=== PATIENT | female | born 1985 | race African-American/Black ===

== ENCOUNTER 2017-02-26 21:34 | Emergency (ER) | payer OTHER ==
[~2017-02-26] VITALS: Ht 154.9 cm; Wt 83.4 kg
[~2017-02-26 21:34] MED LIST: ALBUTEROL SULF8.5 GM IH; ATARAX,VISTARIL25 MG PO; BACTRIM,SEPT1 TABLET PO; BENADRYL ALLERG25 MG PO; FLONASE16 G1 BOTH NARES; KEFLEX500 MG PO; LORTAB 5-325 M1 EACH PO; METHERGINE0.2 MG PO; NAPROSYN500 MG PO; NORCO 7.5/321 TABLET PO; PERCOCET 5/31 TABLET PO; PREDNISONE10 M1 PO; PREDNISONE50 MG PO; PROVENTIL,2.5 MG/3 M IH; VALIUM5 MG PO; VENTOLIN HFA18 GM IH; WESTCORT 0.2% C15 GM TP; no home meds
[2017-02-26 22:21] LABS: ADD MIUA? YES; BILIRUBIN NEGATIVE; BLOOD NEGATIVE; COLOR YELLOW ((YELLOW)); GLUCOSE (STRIP) NEGATIVE; KETONES NEGATIVE; LEUKOCYTES MODERATE; NITRITE NEGATIVE; PROTEIN (STRIP) NEGATIVE; SPECIFIC GRAVITY 1.016 (1.000-1.030); UROBILINOGEN 0.2 MG/DL (0.2-1.0)
[2017-02-26 22:28] LABS: HEMATOCRIT 37.4 % (36.0-46.0); MCH 25.9 PG (29.0-34.0); MCHC 33.4 G/DL (30.0-36.0); MCV 77.6 FL (83-99); MEAN PLAT.VOLUME 8.9 uM^3 (9.5-12.4); PLATELET COUNT 326 K/uL (156-360); RBC DIS.WIDTH-CV 13.8 % (11.8-14.6); RBC DIS.WIDTH-SD 39.1 % (39-53); RED BLOOD COUNT 4.82 M/uL (3.80-5.20); WHITE BLOOD COUNT 9.8 K/uL (4.1-10.2)
[2017-02-26 22:37] LABS: BACTERIA NONE SEEN /HPF; EPITHELIAL CELLS RARE /HPF; MUCUS NONE SEEN /LPF; RED BLOOD CELLS 0-5 /HPF (0-5); UCUL ADDED? NO; WHITE BLOOD CELLS 0-5 /HPF (0-5)
[2017-02-26 22:42] LABS: CHLORIDE 106 mEq/L (99-109); POTASSIUM 3.8 mEq/L (3.7-5.4); SODIUM 138 mEq/L (136-147)
[2017-02-26 22:45] LABS: GLUCOSE 117 mg/dL (70-99)
[2017-02-26 22:46] LABS: ANION GAP 7 MEQ/L (2-14)
[2017-02-26 22:47] LABS: TOTAL BILIRUBIN 0.2 mg/dL (0.0-1.0)
[2017-02-26 22:48] LABS: ALKALINE PHOSPHATASE 61 IU/L (3-129); GFR ESTIMATE (CALCULATED) > 59 mL/min/
[2017-02-26 22:49] LABS: UREA NITROGEN (BUN) 11 mg/dL (9-23)
[2017-02-26 23:14] LABS: QUANTITATIVE HCG 95980.5 MIU/ML
[2017-02-26 23:59] VITALS: BP 130/79
== END 2017-02-27 00:02 | disposition home or self-care (01) ==
LOC: EME 21:34
DX: O26.899 Other specified pregnancy related conditions, unspecified trimester (principal); R10.9 Unspecified abdominal pain; Z3A.00 Weeks of gestation of pregnancy not specified; J45.909 Unspecified asthma, uncomplicated
CPT/HCPCS: 80053; 81003; 84702; 85027; 99281; 99285; J1885; J7030

== ENCOUNTER 2017-03-06 00:52 | Emergency (ER) | payer OTHER ==
[~2017-03-06] VITALS: Ht 154.9 cm; Wt 83.1 kg
[2017-03-06 01:40] LABS: HEMATOCRIT 36.5 % (36.0-46.0); MCH 25.6 PG (29.0-34.0); MCHC 33.2 G/DL (30.0-36.0); MCV 77.3 FL (83-99); MEAN PLAT.VOLUME 8.7 uM^3 (9.5-12.4); PLATELET COUNT 357 K/uL (156-360); RBC DIS.WIDTH-CV 13.8 % (11.8-14.6); RBC DIS.WIDTH-SD 38.9 % (39-53); RED BLOOD COUNT 4.72 M/uL (3.80-5.20); WHITE BLOOD COUNT 10.4 K/uL (4.1-10.2)
[2017-03-06 01:48] LABS: CHLORIDE 107 mEq/L (99-109); POTASSIUM 3.9 mEq/L (3.7-5.4); SODIUM 137 mEq/L (136-147)
[2017-03-06 01:50] LABS: GLUCOSE 107 mg/dL (70-99)
[2017-03-06 01:52] LABS: ANION GAP 5 MEQ/L (2-14); TOTAL BILIRUBIN 0.2 mg/dL (0.0-1.0)
[2017-03-06 01:54] LABS: ALKALINE PHOSPHATASE 64 IU/L (3-129); GFR ESTIMATE (CALCULATED) > 59 mL/min/
[2017-03-06 02:20] LABS: QUANTITATIVE HCG 129313.9 MIU/ML
[2017-03-06 02:39] LABS: UREA NITROGEN (BUN) 9 mg/dL (9-23)
[2017-03-06 03:07] LABS: ADD MIUA? YES; BILIRUBIN NEGATIVE; BLOOD NEGATIVE; COLOR YELLOW ((YELLOW)); GLUCOSE (STRIP) NEGATIVE; KETONES NEGATIVE; LEUKOCYTES MODERATE; NITRITE NEGATIVE; PROTEIN (STRIP) NEGATIVE; SPECIFIC GRAVITY 1.015 (1.000-1.030); UROBILINOGEN 0.2 MG/DL (0.2-1.0)
[2017-03-06 03:13] LABS: BACTERIA NONE SEEN /HPF; EPITHELIAL CELLS RARE /HPF; MUCUS TRACE /LPF; RED BLOOD CELLS 0-5 /HPF (0-5); UCUL ADDED? NO; WHITE BLOOD CELLS 0-5 /HPF (0-5)
[2017-03-06 06:00] VITALS: BP 117/77
== END 2017-03-06 06:05 | disposition home or self-care (01) ==
LOC: EDSEX 00:52 → EME 00:52
DX: O26.891 Other specified pregnancy related conditions, first trimester (principal); R10.9 Unspecified abdominal pain; Z3A.08 8 weeks gestation of pregnancy; J45.909 Unspecified asthma, uncomplicated
CPT/HCPCS: 76801; 80053; 81003; 84702; 85027; 99281; 99284

== ENCOUNTER 2017-07-17 12:48 | Outpatient (CLI) | payer OTHER ==
[2017-07-17 13:00] VITALS: BP 136/77
== END 2017-07-17 13:53 | disposition home or self-care (01) ==
LOC: LDRP-OP → 2WEST 12:49 → LDRP-OP 11-04 11:18
DX: O26.873 Cervical shortening, third trimester (principal); Z3A.28 28 weeks gestation of pregnancy
CPT/HCPCS: 59025; G0378; J0702

== ENCOUNTER 2017-07-19 15:15 | Outpatient (CLI) | payer OTHER ==
[2017-07-19 15:24] VITALS: BP 133/82
[2017-07-19 19:22] VITALS: BP 126/63
== END 2017-07-19 20:45 | disposition home or self-care (01) ==
LOC: LDRP-OP 15:15 → 2WEST 15:16 → LDRP-OP 11-04 13:55
DX: O26.873 Cervical shortening, third trimester (principal); O99.513 Diseases of the respiratory system complicating pregnancy, third trimester; Z3A.29 29 weeks gestation of pregnancy; J45.909 Unspecified asthma, uncomplicated; O99.013 Anemia complicating pregnancy, third trimester; D57.3 Sickle-cell trait; Z59.0 Homelessness
CPT/HCPCS: 59025; G0378; J7120

== ENCOUNTER 2017-07-26 16:49 | Outpatient (CLI) | payer OTHER ==
[~2017-07-26] VITALS: Ht 154.9 cm; Wt 93.6 kg
[2017-07-26 17:02] VITALS: BP 118/77
[2017-07-26] MEDS ORDERED: EXPECTA PRENAT1 EACH PO (17:07)
[2017-07-26] MEDS ORDERED: ENDOMETRIN100 MG VG (17:07)
[2017-07-26 18:07] VITALS: BP 125/76
[2017-07-26 18:28] LABS: ADD MIUA? YES; BILIRUBIN NEGATIVE; BLOOD SMALL; COLOR YELLOW ((YELLOW)); GLUCOSE (STRIP) NEGATIVE; KETONES 20; LEUKOCYTES LARGE; NITRITE NEGATIVE; PROTEIN (STRIP) NEGATIVE; SPECIFIC GRAVITY 1.016 (1.000-1.030); UROBILINOGEN 0.2 MG/DL (0.2-1.0)
[2017-07-26 18:53] LABS: BACTERIA 3+ /HPF; EPITHELIAL CELLS 4+ /HPF; MUCUS NONE SEEN /LPF; OTHER TRICHOMONAS; UCUL ADDED? YES; WHITE BLOOD CELLS TNTC /HPF (0-5)
[2017-07-26 20:15] LABS: CANDIDA DNA PROBE NEGATIVE; GARDNERELLA DNA PROBE NEGATIVE; INTERNAL CONTROL VALID? YES
[2017-07-28 13:10] LABS: CHLAMYDIA TRACHOMATIS NEGATIVE; NEISSERIA GONORRHOEAE NEGATIVE
== END 2017-07-26 19:00 | disposition home or self-care (01) ==
LOC: LDRP-OP 16:49 → 2WEST 16:50 → LDRP-OP 11-04 20:51
PROVIDERS: Advanced Practice Midwife
DX: O26.893 Other specified pregnancy related conditions, third trimester (principal); Z3A.30 30 weeks gestation of pregnancy; N89.8 Other specified noninflammatory disorders of vagina; Z59.0 Homelessness
CPT/HCPCS: 59025; 81003; 87077; 87086; 87186; 87480; 87491; 87510; 87591; 87660; G0378

== ENCOUNTER 2017-08-07 07:08 | Outpatient (CLI) | payer OTHER ==
[2017-08-07] VITALS (8 sets, daily range): BP systolic 110–138; BP diastolic 53–73
[~2017-08-07 07:08] MED LIST changes: +ENDOMETRIN100 MG VG; +EXPECTA PRENAT1 EACH PO; +MACROBID100 MG PO
[2017-08-07 08:26] LABS: EOSINOPHIL (%) 1.9 % (0-5); EOSINOPHIL COUNT 0.2 K/uL (0-0.3); HEMATOCRIT 32.1 % (36.0-46.0); IMMATURE GRANULOCYTE COUNT 0.1 K/uL; INSTRUMENT ABS NEUTROPHIL CT 6.3 K/uL; LYMPHOCYTE COUNT 1.1 K/uL (1.0-2.8); MCH 25.5 PG (29.0-34.0); MCV 77.3 FL (83-99); MONOCYTE (%) 11.5 % (3-12); NEUTROPHIL (%) 72.3 % (45-76); NEUTROPHIL COUNT 6.3 K/uL (1.8-6.4); PLATELET COUNT 257 K/uL (156-360); RBC DIS.WIDTH-CV 14.8 % (11.8-14.6); RBC DIS.WIDTH-SD 41.5 % (39-53); RED BLOOD COUNT 4.15 M/uL (3.80-5.20); WHITE BLOOD COUNT 8.6 K/uL (4.1-10.2)
[2017-08-07 09:37] LABS: AMPHETAMINE NEGATIVE (500 ng/mL); BARBITURATES NEGATIVE (200 ng/mL); BENZODIAZEPINES NEGATIVE (150 ng/mL); COCAINE NEGATIVE (150 ng/mL); INTERNAL CONTROLS VALID? YES; METHADONE NEGATIVE (200 ng/mL); METHAMPHETAMINE NEGATIVE (500 ng/mL); OPIATES (MORPHINE) NEGATIVE (100 ng/mL); OXYCODONE NEGATIVE (100 ng/mL); PHENCYCLIDINE NEGATIVE (25 ng/mL); PROPOXYPHENE NEGATIVE (300 ng/mL); THC CANNABINOIDS NEGATIVE (50 ng/mL); TRICYCLIC ANTIDEPRESSANTS NEGATIVE (300 ng/mL)
[2017-08-07 20:40] LABS: CANDIDA DNA PROBE NEGATIVE; GARDNERELLA DNA PROBE POSITIVE; INTERNAL CONTROL VALID? YES
== END 2017-08-07 11:29 | disposition short-term general hospital (02) ==
LOC: LDRP-OP → 2WEST 07:09 → LDRP-OP 11-04 12:21
PROVIDERS: Obstetrics & Gynecology
DX: O60.03 Preterm labor without delivery, third trimester (principal); O99.820 Streptococcus B carrier state complicating pregnancy; O26.873 Cervical shortening, third trimester; Z3A.31 31 weeks gestation of pregnancy; O99.513 Diseases of the respiratory system complicating pregnancy, third trimester; J45.909 Unspecified asthma, uncomplicated; O99.213 Obesity complicating pregnancy, third trimester; E66.9 Obesity, unspecified; D57.3 Sickle-cell trait; Z59.0 Homelessness
CPT/HCPCS: 59025; 76818; 85025; 87086; 87480; 87510; 87660; G0378; J0290; J0702; J3475; J7050; J7120

== ENCOUNTER 2017-09-10 08:57 | Emergency (ER) | payer OTHER ==
[~2017-09-10] VITALS: Ht 154.9 cm; Wt 67.6 kg
[2017-09-10 09:01] VITALS: BP 118/75
== END 2017-09-10 10:13 | disposition home or self-care (01) ==
LOC: EME 08:57
PROC: 0H98XZZ Drainage of Buttock Skin, External Approach (ICD-10-PCS; principal; 2017-09-10)
DX: L02.31 Cutaneous abscess of buttock (principal)
CPT/HCPCS: 99281; 99284

== ENCOUNTER 2018-02-21 00:09 | Emergency (ER) | payer OTHER ==
[~2018-02-21] VITALS: Ht 152.4 cm; Wt 68.9 kg
[2018-02-21] MEDS ORDERED: PEN-VEE K,VEET500 MG PO (02:44)
[2018-02-21] MEDS ORDERED: NORCO 5/3251 TABLET PO (02:44)
[2018-02-21 03:17] VITALS: BP 117/84
== END 2018-02-21 03:19 | disposition home or self-care (01) ==
LOC: EME 00:09
DX: K04.7 Periapical abscess without sinus (principal); Z88.8 Allergy status to other drugs, medicaments and biological substances
CPT/HCPCS: 99281; 99282